=== PATIENT | male | born 1990 | race Caucasian/White ===

== ENCOUNTER 2017-12-03 15:53 | Emergency (ER) | payer OTHER ==
[2017-12-03] MEDS ORDERED: HYDROmorphone 1 MG/ML Syringe IVPUSH ONE ×2 (16:12→16:59)
[2017-12-03] MEDS ORDERED: Sodium Chloride 0.9% 10 ML Syringe FLUSH PRN (16:16)
--- NOTE | 2017-12-03 16:30 | EDM.PDOC ---
ED HPI GENERAL MEDICAL PROBLEM - General Chief Complaint: Upper Extremity Injury/Pain Stated Complaint: RT RING FINGER Time Seen by Provider: 12/03/17 16:01 Source of Information: Reports: Patient History Limitations: Reports: No Limitations - History of Present Illness INITIAL COMMENTS - FREE TEXT/NARRATIVE: patient was ice fishing today when they were loading to leave packing of a pickup his hand got in the way of the landscape contractor hitch and the trailer hitch smashing his right ring finger. Pt states he hear a crunch and instant pain. He also noted pain in between his middle and ring finger. He was unable to bend his finger and swelling began quickly. Pt came to the ER right from the [facility]. Drank 2 beers last drink at 2pm today last at at 10am. Tdap 2016. Pt hx: -DM I -Factor 7 -Hypertension Onset: Sudden Onset Date: 12/03/17 Quality: Reports: Throbbing Severity: Moderate Improves with: Reports: Immobilization Worsens with: Reports: Movement Right Hand Pain Score (Numeric/FACES): 7 - Related Data Allergies Allergy/AdvReac Type Severity Reaction Status Date / Time No Known Allergies Allergy Verified 12/03/17 16:27 Home Meds: Home Meds Aspirin 325 mg PO DAILY 12/03/17 [History] Enalapril [Vasotec] 5 mg PO DAILY 12/03/17 [History] Insulin Aspart [NovoLOG] 100 unit SQ ASDIRECTED 12/03/17 [History] Multivitamin [Multiple Vitamins] 1 each PO DAILY 12/03/17 [History] Rosuvastatin [Crestor] 40 mg PO DAILY 12/03/17 [History] Warfarin [Coumadin] 7.5 mg PO MOFR 12/03/17 [History] Warfarin [Coumadin] 10 mg PO SUTUWETHSA 12/03/17 [History] Review of Systems - Review of Systems Review Of Systems: See Below Constitutional: Reports: No Symptoms Respiratory: Reports: No Symptoms Cardiovascular: Reports: No Symptoms GI/Abdominal: Reports: No Symptoms Genitourinary: Reports: No Symptoms Musculoskeletal: Reports: No Symptoms Skin: Reports: No Symptoms Neurological: Reports: No Symptoms Psychiatric: Reports: No Symptoms ED EXAM, GENERAL - Physical Exam Exam: See Below Exam Limited By: No Limitations General Appearance: Alert, WD/WN, No Apparent Distress Respiratory/Chest: No Respiratory Distress, Lungs Clear, Normal Breath Sounds, No Accessory Muscle Use, Chest Non-Tender Cardiovascular: Normal Peripheral Pulses, Regular Rate, Rhythm, No Edema, No Gallop, No JVD, No Murmur, No Rub GI/Abdominal: Normal Bowel Sounds, Soft, Non-Tender, No Organomegaly, No Distention, No Abnormal Bruit, No Mass Extremities: Normal Inspection, Normal Range of Motion, Non-Tender, Arm Pain ( right hand ring finger- laceration proximal end in between ring and middle finger, defomity noted, limited ROM) Neurological: Alert, Oriented, CN II-XII Intact Skin Exam: Warm, Dry, Intact, Normal Color ED TRAUMA EXTREMITY PROCEDURES - Splinting Right 4th Digit Pre-Procedure NV Status: Normal Post-Procedure NV Status: Normal Splint Material: Other Applied & Form Fitted By: Provider Provider Post-Splint Application NV Check: NV Status Normal, Good Position Complications: No Course - Vital Signs Last Recorded V/S: Last Vital Signs Temp 35.6 C 12/03/17 16:00 Pulse 64 12/03/17 16:00 Resp 16 12/03/17 16:00 BP 156/97 H 12/03/17 16:00 Pulse Ox 95 12/03/17 16:00 - Orders/Labs/Meds Orders: Active Orders 24 hr Category Date Time Status Vaccines to be Administered [RC] PER UNIT ROUTINE Care 12/03/17 16:38 Active Hand Comp Min 3V Rt [CR] Stat Exams 12/03/17 16:02 Taken COMPREHENSIVE METABOLIC PN,CMP [CHEM] Stat Lab 12/03/17 10:48 Received INR,PT,PROTHROMBIN TIME [COAG] Stat Lab 12/03/17 10:48 Received PTT,PARTIAL THROMBOPLSTIN TIME [COAG] Stat Lab 12/03/17 10:48 Received Sodium Chloride 0.9% [Normal Saline] 1,000 ml Med 12/03/17 16:45 Active IV ASDIRECTED Sodium Chloride 0.9% [Saline Flush] Med 12/03/17 16:16 Active 10 ml FLUSH ASDIRECTED PRN Peripheral IV Insertion Adult [OM.PC] Routine Oth 12/03/17 16:16 Ordered Medication Orders Sodium Chloride (Normal Saline) 1,000 mls @ 150 mls/hr IV ASDIRECTED EULALIO Last Admin: 12/03/17 16:48 Dose: 150 mls/hr Sodium Chloride (Saline Flush) 10 ml FLUSH ASDIRECTED PRN PRN Reason: Keep Vein Open Labs: Laboratory Tests 12/03/17 Range/Units 10:48 WBC 7.8 (4.0-10.0) x10^3/uL RBC 4.80 (4.5-6.0) x10^6/uL Hgb 14.7 (14.0-18.0) g/dL Hct 42.3 (40.0-52.0) % MCV 88.1 (78.0-93.0) fL MCH 30.6 (26.0-32.0) pg MCHC 34.8 (32.0-36.0) g/dL RDW Coeff of Luigi 12.6 (10.0-15.0) % Plt Count 240 (130-400) x10^3/uL Neut % (Auto) 60.5 (50.0-80.0) % Lymph % (Auto) 27.9 (25.0-50.0) % Ray % (Auto) 7.1 (2.0-11.0) % Eos % (Auto) 4.0 (0.0-4.0) % Baso % (Auto) 0.5 (0.2-1.2) % Meds: Medications Generic Name Dose Route Start Last Admin Trade Name Freq PRN Reason Stop Dose Admin Sodium Chloride 1,000 mls @ 150 mls/hr 12/03/17 16:45 12/03/17 16:48 Normal Saline IV 150 mls/hr ASDIRECTED EULALIO Administration Sodium Chloride 10 ml 12/03/17 16:16 Saline Flush FLUSH ASDIRECTED PRN Keep Vein Open Discontinued Medications Generic Name Dose Route Start Last Admin Trade Name Freq PRN Reason Stop Dose Admin Cefazolin Sodium 1 gm 12/03/17 16:37 12/03/17 16:48 Ancef IVPUSH 12/03/17 16:38 1 gm ONETIME ONE Administration Diphtheria/Tetanus/Acell Pertussis 0.5 ml 12/03/17 16:38 Adacel IM 12/03/17 16:39 .ONCE ONE Hydromorphone HCl 0.5 mg 12/03/17 16:12 12/03/17 16:19 Dilaudid IVPUSH 12/03/17 16:13 0.5 mg ONETIME ONE Administration Hydromorphone HCl 0.5 mg 12/03/17 16:59 12/03/17 17:04 Dilaudid IVPUSH 12/03/17 17:00 0.5 mg ONETIME ONE Administration Ondansetron HCl 4 mg 12/03/17 16:31 12/03/17 16:46 Zofran IVPUSH 12/03/17 16:32 4 mg ONETIME ONE Administration Departure - Departure Time of Disposition: 15:12 Disposition: DC/Tfer to Acute Hospital 02 Condition: Good Clinical Impression: Comminuted fracture - Discharge Information Instructions: Finger Fracture, [id number] Forms: ED Department Discharge, Interfacility Transfer EMTALA - Problem List Review Problem List Initiated/Reviewed/Updated: Yes - My Orders Last 24 Hours: My Active Orders 12/03/17 10:48 COMPREHENSIVE METABOLIC PN,CMP [CHEM] Stat INR,PT,PROTHROMBIN TIME [COAG] Stat PTT,PARTIAL THROMBOPLSTIN TIME [COAG] Stat 12/03/17 16:02 Hand Comp Min 3V Rt [CR] Stat 12/03/17 16:16 Sodium Chloride 0.9% [Saline Flush] 10 ml FLUSH ASDIRECTED PRN Peripheral IV Insertion Adult [OM.PC] Routine 12/03/17 16:38 Vaccines to be Administered [RC] PER UNIT ROUTINE 12/03/17 16:45 Sodium Chloride 0.9% [Normal Saline] 1,000 ml IV ASDIRECTED - Assessment/Plan Last 24 Hours: My Active Orders 12/03/17 10:48 COMPREHENSIVE METABOLIC PN,CMP [CHEM] Stat INR,PT,PROTHROMBIN TIME [COAG] Stat PTT,PARTIAL THROMBOPLSTIN TIME [COAG] Stat 12/03/17 16:02 Hand Comp Min 3V Rt [CR] Stat 12/03/17 16:16 Sodium Chloride 0.9% [Saline Flush] 10 ml FLUSH ASDIRECTED PRN Peripheral IV Insertion Adult [OM.PC] Routine 12/03/17 16:38 Vaccines to be Administered [RC] PER UNIT ROUTINE 12/03/17 16:45 Sodium Chloride 0.9% [Normal Saline] 1,000 ml IV ASDIRECTED Assessment:: 1. Xray in ER today- comminuted fracture of 4th finger 2. start IV with fluids due to NPO status and DM I; give pain medications and anti nausea 3. Consult with hand surgeon for comminuted fracture: 4. Sharonda in ED for open wound 5. Remain NPO 6. Transfer to [facility] for further treatment and management of injury 7. Hand splint and wound cleaning prior to transfer
[2017-12-03] MEDS ORDERED: Ondansetron 4 MG/2 ML SDV IVPUSH ONE (16:31)
[2017-12-03] MEDS ORDERED: ceFAZolin 1 GM Vial IVPUSH ONE (16:37)
[2017-12-03] MEDS ORDERED: Diphtheria,Pertussis(Acell),Tetanus Vaccine 0.5 ML Syringe IM ONE (16:38)
[2017-12-03] MEDS ORDERED: Sodium Chloride 0.9% 1,000 ML IV SCH (16:45)
[2017-12-03 17:16] LABS: CHLORIDE,CL 102 mmol/L (98-107); SODIUM,NA 139 mmol/L (136-145)
== END 2017-12-03 17:26 | disposition short-term general hospital (02) ==
LOC: VM.ED 15:53
DX: S62.614A Displaced fracture of proximal phalanx of right ring finger, initial encounter for closed fracture (principal); W23.0XXA Caught, crushed, jammed, or pinched between moving objects, initial encounter
CPT/HCPCS: 29130; 36415; 73130; 80053; 85025; 85610; 85730; 96361; 96374; 96375; 96376; 99284; J0690; J1170; J2405; J7030